=== PATIENT | female | born 1980 | race Hispanic/Latino ===

== ENCOUNTER 2018-02-05 03:47 | Emergency (ER) | payer SELFPAY ==
[2018-02-05] MEDS ORDERED: NA CHLORIDE 0.9% 1,000 ML ONE (04:20)
[2018-02-05 04:44] LABS: Potassium 3.9 mmol/L (3.5-5.1)
[2018-02-05 04:57] LABS: Absolute Lymphocytes (CBC) 2.4 K/uL (0.7-4.9); Absolute Monocytes 0.4 K/uL (0.1-1.3); Basophils % 0.5 % (0-1.3); Eosinophils % 0.6 % (0-4.4); Hematocrit 28.2 % (36.0-45.0); Lymphocytes % 30.5 % (15.3-44.8); MCH 29.2 pg (27.0-35.0); MCV 85.4 fL (80-100); MPV 7.5 fL (7.6-11.3); Monocytes % 5.2 % (3.3-12.3); RBC Red Blood Cell Count 3.31 M/uL (3.86-4.86)
[2018-02-05] MEDS ORDERED: KETOROLAC 30 MG/ML INJ ONE (05:37)
[2018-02-05] MEDS ORDERED: CEFTRIAXONE/SWI 1gm 1 GM/10 ML SYR ONE (05:37)
--- NOTE | 2018-02-05 06:41 | ER ---
Nurse's Notes [facility] Name: Leydi Lind Age: 37 yrs Sex: Female : 1980 Arrival Date: 02/05/2018 Time: 03:49 Bed 18 Private MD: Diagnosis: Abnormal uterine and vaginal bleeding, unspecified;Urinary tract infection, site not specified;Anemia, unspecified Presentation: 02/05 03:49 Presenting complaint: Patient states: "I am having bleeding for 2 weeks now with clots. jd3 I am also having lower abdominal pain.". Transition of care: patient was not received from another setting of care. Onset of symptoms was February 05, 2018. Risk Assessment: Do you want to hurt yourself or someone else? Patient reports no desire to harm self or others. Initial Sepsis Screen: Does the patient meet any 2 criteria? No. Patient's initial sepsis screen is negative. Does the patient have a suspected source of infection? No. Patient's initial sepsis screen is negative. Care prior to arrival: None. 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 - Social history:: Smoking status: . - Ebola Screening: : Patient negative for fever greater than or equal to 101.5 degrees Fahrenheit, and additional compatible Ebola Virus Disease symptoms. - Family history:: not pertinent. Screenin:56 Abuse screen: Denies threats or abuse. Nutritional screening: No deficits noted. jd3 Tuberculosis screening: No symptoms or risk factors identified. Fall Risk Ambulatory Aid- None/Bed Rest/Nurse Assist (0 pts). Gait- Normal/Bed Rest/Wheelchair (0 pts) Mental Status- Oriented to own ability (0 pts). Total Lim Fall Scale indicates No Risk (0-24 pts). Assessment: 03:54 General: Appears in no apparent distress. uncomfortable, Behavior is calm, cooperative, jd3 appropriate for age. Pain: Complains of pain in right lower quadrant and left lower quadrant Quality of pain is described as aching. Neuro: Level of Consciousness is awake, alert, obeys commands, Oriented to person, place, time, situation. Cardiovascular: Denies chest pain, Capillary refill < 3 seconds Patient's skin is warm and dry. Respiratory: Airway is patent Respiratory effort is even, unlabored, Respiratory pattern is regular, symmetrical, Denies shortness of breath. GI: Abdomen is round Bowel sounds present X 4 quads. Abd is soft Abdomen is tender to palpation in right lower quadrant and left lower quadrant. : Urine is blood tinged, Reports vaginal bleeding that is with clots, moderate flow. EENT: No signs and/or symptoms were reported regarding the EENT system. Derm: Skin is intact, Skin is dry, Skin is normal, Skin temperature is warm. Musculoskeletal: Circulation, motion, and sensation intact. Range of motion: intact in all extremities. 04:35 Reassessment: Patient appears in no apparent distress at this time. No changes from jd3 previously documented assessment. Patient and/or family updated on plan of care and expected duration. Pain level reassessed. Patient is alert, oriented x 3, equal unlabored respirations, skin warm/dry/pink. 05:45 Reassessment: Patient appears in no apparent distress at this time. No changes from jd3 previously documented assessment. Patient and/or family updated on plan of care and expected duration. Pain level reassessed. Patient is alert, oriented x 3, equal unlabored respirations, skin warm/dry/pink. 06:48 Reassessment: Patient appears in no apparent distress at this time. No changes from jd3 previously documented assessment. Patient and/or family updated on plan of care and expected duration. Pain level reassessed. Patient is alert, oriented x 3, equal unlabored respirations, skin warm/dry/pink. waiting for CT results to discharge pt. 07:00 General: Appears in no apparent distress. comfortable, Behavior is calm, cooperative. rb1 Pain: Denies pain. Neuro: Level of Consciousness is awake, alert, obeys commands, Oriented to person, place, time, situation. Cardiovascular: Capillary refill < 3 seconds in bilateral fingers. Respiratory: Airway is patent Respiratory effort is even, unlabored, Respiratory pattern is regular, symmetrical. Derm: Skin is dry, Skin is normal, Skin temperature is warm. 07:41 Reassessment: Patient appears in no apparent distress at this time. No changes from rb1 previously documented assessment. Vital Signs: 03:52 BP 131 / 86; Pulse 78; Resp 16 S; Temp 98.9(O); Pulse Ox 100% on R/A; Weight 68.95 kg jd3 (R); Height 5 ft. 4 in. (162.56 cm) (R); 04:35 BP 105 / 71; Pulse 67; Resp 16 S; Pulse Ox 100% on R/A; jd3 05:36 BP 110 / 80 Supine; jd3 05:45 BP 103 / 71 Sitting; Pulse 84; Resp 16 S; Pulse Ox 100% on R/A; jd3 05:59 BP 116 / 86 Standing; jd3 06:50 BP 95 / 61; Pulse 70; Resp 16 S; Pulse Ox 70% on R/A; jd3 07:41 BP 110 / 75; Pulse 68; Resp 17; Pulse Ox 99% on R/A; rb1 03:52 Body Mass Index 26.09 (68.95 kg, 162.56 cm) jd3 ED Course: 03:49 Patient arrived in ED. jd3 03:51 Triage completed. jd3 03:52 Jorge Ortega MD is Attending Physician. shiraz 03:54 Arm band placed on. jd3 03:56 Tarik Hope RN is Primary Nurse. jd3 03:56 Patient has correct armband on for positive identification. Bed in low position. Call j light in reach. Side rails up X 1. Adult w/ patient. 04:05 Inserted saline lock: 20 gauge in right antecubital area, using aseptic technique. jd3 Blood collected. 04:21 CBC with Diff Sent. jd3 04:21 Basic Metabolic Panel Sent. jd3 04:21 Type And Screen Sent. jd3 06:19 CT completed. Patient tolerated procedure well. Patient moved to CT via stretcher. Patient moved back from CT. 06:38 CT Stone Protocol In Process Unspecified. EDMS 06:40 Carrie Barlow MD is Referral Physician. shiraz 07:43 No provider procedures requiring assistance completed. IV discontinued, intact, rb1 bleeding controlled, No redness/swelling at site. Pressure dressing applied. Administered Medications: 04:16 Drug: NS 0.9% 1000 ml Route: IV; Rate: 1 bolus; Site: right antecubital; jd3 07:10 Follow up: IV Status: Completed infusion rb1 05:35 Drug: Rocephin - (cefTRIAXone) 1 grams Route: IVPB; Infused Over: 30 mins; Site: right jd3 antecubital; 06:00 Follow up: Response: No adverse reaction; IV Status: Completed infusion jd3 05:35 Drug: TORadol 30 mg Route: IVP; Site: right antecubital; jd3 05:59 Follow up: Response: No adverse reaction jd3 Outcome: 06:40 Discharge ordered by . shiraz 07:43 Discharged to home ambulatory, with family. rb1 07:43 Condition: stable 07:43 Discharge instructions given to patient, Instructed on discharge instructions, follow up and referral plans. medication usage, Demonstrated understanding of instructions, follow-up care, medications, Prescriptions given X 2. 07:44 Patient left the ED. rb1 Signatures: Dispatcher [employer] EDMS Jorge Ortega MD MD cha Hagler, Ervin eh Barber, Rebecca, RN RN rb1 Tarik Hope RN RN jd3 Corrections: (The following items were deleted from the chart) 04:23 04:21 ABO/RH TYPING+BB.LAB.BRZ drawn and sent. jd3 EDAZ 05:59 05:36 BP 103 / 71 Sitting; Pulse 84bpm; Resp 16bpm; Spontaneous; Pulse Ox 100% RA; jd3 jd3
--- NOTE | 2018-02-05 06:41 | EDPHYS ---
Physician Documentation [facility] Name: Leydi Lind Age: 37 yrs Sex: Female : 1980 Arrival Date: 02/05/2018 Time: 03:49 Bed 18 Private MD: ED Physician Jorge Ortega HPI: 02/05 04:14 This 37 yrs old Female presents to ER via EMS with complaints of heavy vaginal shiraz bleeding. 04:14 The patient presents with vaginal bleeding that is heavy. Onset: The symptoms/episode shiraz began/occurred 3 day(s) ago. Modifying factors: The symptoms are alleviated by nothing, the symptoms are aggravated by nothing. Associated signs and symptoms: The patient has no apparent associated signs or symptoms. Severity of symptoms: At their worst the symptoms were mild, moderate, in the emergency department the symptoms are unchanged. The patient has experienced similar episodes in the past, multiple times. 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 - Social history:: Smoking status: . - Ebola Screening: : Patient negative for fever greater than or equal to 101.5 degrees Fahrenheit, and additional compatible Ebola Virus Disease symptoms. - Family history:: not pertinent. ROS: 04:14 Constitutional: Negative for fever, chills, and weight loss, Eyes: Negative for injury, shiraz pain, redness, and discharge, ENT: Negative for injury, pain, and discharge, Neck: Negative for injury, pain, and swelling, Cardiovascular: Negative for chest pain, palpitations, and edema, Respiratory: Negative for shortness of breath, cough, wheezing, and pleuritic chest pain, Abdomen/GI: Negative for abdominal pain, nausea, vomiting, diarrhea, and constipation, Back: Negative for injury and pain, MS/Extremity: Negative for injury and deformity, Neuro: Negative for headache, weakness, numbness, tingling, and seizure, Psych: Negative for depression, anxiety, suicide ideation, homicidal ideation, and hallucinations, Allergy/Immunology: Negative for hives, rash, and allergies, Endocrine: Negative for neck swelling, polydipsia, polyuria, polyphagia, and marked weight changes, Hematologic/Lymphatic: Negative for swollen nodes, abnormal bleeding, and unusual bruising. 04:14 : Positive for pelvic pain, vaginal bleeding, menstrual abnormality. Exam: 04:14 Constitutional: This is a well developed, well nourished patient who is awake, alert, shiraz and in no acute distress. Head/Face: Normocephalic, atraumatic. ENT: Nares patent. No nasal discharge, no septal abnormalities noted. Tympanic membranes are normal and external auditory canals are clear. Oropharynx with no redness, swelling, or masses, exudates, or evidence of obstruction, uvula midline. Mucous membranes moist. Neck: Trachea midline, no thyromegaly or masses palpated, and no cervical lymphadenopathy. Supple, full range of motion without nuchal rigidity, or vertebral point tenderness. No Meningismus. Chest/axilla: Normal chest wall appearance and motion. Nontender with no deformity. No lesions are appreciated. Cardiovascular: Regular rate and rhythm with a normal S1 and S2. No gallops, murmurs, or rubs. Normal PMI, no JVD. No pulse deficits. Respiratory: Lungs have equal breath sounds bilaterally, clear to auscultation and percussion. No rales, rhonchi or wheezes noted. No increased work of breathing, no retractions or nasal flaring. Abdomen/GI: Soft, non-tender, with normal bowel sounds. No distension or tympany. No guarding or rebound. No evidence of tenderness throughout. Back: No spinal tenderness. No costovertebral tenderness. Full range of motion. MS/ Extremity: Pulses equal, no cyanosis. Neurovascular intact. Full, normal range of motion. Neuro: Awake and alert, GCS 15, oriented to person, place, time, and situation. Cranial nerves II-XII grossly intact. Motor strength 5/5 in all extremities. Sensory grossly intact. Cerebellar exam normal. Normal gait. Psych: Awake, alert, with orientation to person, place and time. Behavior, mood, and affect are within normal limits. 04:14 Eyes: Conjunctiva: pale. 04:14 Abdomen/GI: Inspection: abdomen appears normal, Bowel sounds: normal, Palpation: mild abdominal tenderness, in the suprapubic area, Liver: no appreciated palpable abnormalities, Hernia: not appreciated. 04:14 Skin: Appearance: Color: pale. Vital Signs: 03:52 BP 131 / 86; Pulse 78; Resp 16 S; Temp 98.9(O); Pulse Ox 100% on R/A; Weight 68.95 kg jd3 (R); Height 5 ft. 4 in. (162.56 cm) (R); 04:35 BP 105 / 71; Pulse 67; Resp 16 S; Pulse Ox 100% on R/A; jd3 05:36 BP 110 / 80 Supine; jd3 05:45 BP 103 / 71 Sitting; Pulse 84; Resp 16 S; Pulse Ox 100% on R/A; jd3 05:59 BP 116 / 86 Standing; jd3 06:50 BP 95 / 61; Pulse 70; Resp 16 S; Pulse Ox 70% on R/A; jd3 07:41 BP 110 / 75; Pulse 68; Resp 17; Pulse Ox 99% on R/A; rb1 03:52 Body Mass Index 26.09 (68.95 kg, 162.56 cm) jd3 MDM: 03:52 Patient medically screened. [facility] 04:17 Data reviewed: vital signs, nurses notes, lab test result(s). [facility] 02/05 03:52 Order name: Basic Metabolic Panel; Complete Time: 05:[address] [facility] 02/05 03:52 Order name: CBC with Diff; Complete Time: 05:[address] [facility] 02/05 04:14 Order name: Type And Screen; Complete Time: 06:[address] [facility] 02/05 05:56 Order name: ABO/RH no charge; Complete Time: 06:15 EDOR 02/05 06:47 Order name: Urine Dipstick--Ancillary (enter results) 02/05 03:52 Order name: Urine Test (obtain specimen); Complete Time: 04:[address] [facility] 02/05 03:52 Order name: IV Saline Lock; Complete Time: 04:[address] [facility] 02/05 03:52 Order name: Labs collected and sent; Complete Time: 04:[address] [facility] 02/05 05:15 Order name: CT Stone Protocol [facility] 02/05 06:47 Order name: Urine --Ancillary (enter results) 02/05 03:52 Order name: NPO; Complete Time: 03:[address] [facility] 02/05 03:52 Order name: Urine Dipstick-Ancillary (obtain specimen); Complete Time: 04:[address] [facility] 02/05 03:52 Order name: Orthostatics; Complete Time: 05:[address] [facility] Administered Medications: 04:16 Drug: NS 0.9% 1000 ml Route: IV; Rate: 1 bolus; Site: right antecubital; jd3 07:10 Follow up: IV Status: Completed infusion rb1 05:35 Drug: Rocephin - (cefTRIAXone) 1 grams Route: IVPB; Infused Over: 30 mins; Site: right jd3 antecubital; 06:00 Follow up: Response: No adverse reaction; IV Status: Completed infusion jd3 05:35 Drug: TORadol 30 mg Route: IVP; Site: right antecubital; jd3 05:59 Follow up: Response: No adverse reaction jd3 Disposition: 02/05/18 06:40 Discharged to Home. Impression: Abnormal uterine and vaginal bleeding, unspecified, Urinary tract infection, site not specified, Anemia, unspecified. - Condition is Stable. - Discharge Instructions: Abnormal Uterine Bleeding, Anemia, Nonspecific, Dysmenorrhea, Urinary Tract Infection, Adult, Urinary Tract Infection, Adult, [id number], Abnormal Uterine Bleeding, Kokh-vd-Msvv, Dysmenorrhea, Ptpi-ek-Owik. - Prescriptions for Ibuprofen 600 mg Oral Tablet - take 1 tablet by ORAL route every 8 hours As needed take with food; 21 tablet. Cipro 250 mg Oral Tablet - take 1 tablet by ORAL route every 12 hours; 14 tablet. - Medication Reconciliation Form, Thank You Letter, Antibiotic Education, Prescription Opioid Use form. - Follow up: Private Physician; When: 2 - 3 days; Reason: Recheck today's complaints, Continuance of care, Re-evaluation by your physician. Follow up: Carrie Barlow MD; When: 2 - 3 days; Reason: Recheck today's complaints, Continuance of care, Re-evaluation by your physician. - Problem is new. - Symptoms have improved. Signatures: Dispatcher [employer] Jorge Sandoval MD MD cha Barber, Rebecca, RN RN rb1 Tarik Hope RN RN jd3 Corrections: (The following items were deleted from the chart) 04:23 03:53 ABO/RH TYPING+BB.LAB.BRZ ordered. [facility] 06:41 06:40 02/05/2018 06:40 Discharged to Home. Impression: Abnormal uterine and vaginal shiraz bleeding, unspecified; Urinary tract infection, site not specified; Anemia, unspecified. Condition is Stable. Discharge Instructions: Abnormal Uterine Bleeding, Anemia, Nonspecific, Dysmenorrhea, Urinary Tract Infection, Adult, Urinary Tract Infection, Adult, [id number], Abnormal Uterine Bleeding, Gvpy-nb-Oids, Dysmenorrhea, Wqrs-pc-Ycza. Prescriptions for Ibuprofen 600 mg Oral Tablet - take 1 tablet by ORAL route every 8 hours As needed take with food; 21 tablet, Cipro 250 mg Oral Tablet - take 1 tablet by ORAL route every 12 hours; 14 tablet. and Forms are Medication Reconciliation Form, Thank You Letter, Antibiotic Education, Prescription Opioid Use. Follow up: Private Physician; When: 2 - 3 days; Reason: Recheck today's complaints, Continuance of care, Re-evaluation by your physician. Problem is new. Symptoms have improved. shiraz 07:44 06:41 02/05/2018 06:40 Discharged to Home. Impression: Abnormal uterine and vaginal rb1 bleeding, unspecified; Urinary tract infection, site not specified; Anemia, unspecified. Condition is Stable. Discharge Instructions: Abnormal Uterine Bleeding, Anemia, Nonspecific, Dysmenorrhea, Urinary Tract Infection, Adult, Urinary Tract Infection, Adult, [id number], Abnormal Uterine Bleeding, Vfmm-jn-Kaag, Dysmenorrhea, Lvqg-ek-Vkda. Prescriptions for Ibuprofen 600 mg Oral Tablet - take 1 tablet by ORAL route every 8 hours As needed take with food; 21 tablet, Cipro 250 mg Oral Tablet - take 1 tablet by ORAL route every 12 hours; 14 tablet. and Forms are Medication Reconciliation Form, Thank You Letter, Antibiotic Education, Prescription Opioid Use. Follow up: Private Physician; When: 2 - 3 days; Reason: Recheck today's complaints, Continuance of care, Re-evaluation by your physician. Follow up: Carrie Barlow; When: 2 - 3 days; Reason: Recheck today's complaints, Continuance of care, Re-evaluation by your physician. Problem is new. Symptoms have improved. shiraz
[2018-02-05 07:33] LABS: Urine Blood 3+ (NEG); Urine Glucose NEGATIVE (NEG); Urine Protein 2+ (NEG); Urine pH 5.5 (5.0-7.0)
[2018-02-05 07:48] VITALS: TEMP 98.9
[2018-02-05 07:55] VITALS: BP 110/75; O2SAT 99
--- NOTE | 2018-02-05 08:05 | RAD REPORT ---
EXAM DESCRIPTION: CT - Stone Protocol - 02/05/2018 7:46 am CLINICAL HISTORY: Abdominal pain. Lower abdominal pain. Vaginal bleeding COMPARISON: None. TECHNIQUE: Computed axial tomography of the abdomen pelvis was obtained without oral or IV contrast. Lack of IV and oral contrast limits evaluation of solid organs, bowel, and vessels. Coronal reformat maria del carmen images were obtained and reviewed. Preliminary report was generated by [facility] and re viewed prior to dictation All CT scans are performed using dose optimization technique as appropriate and may include automated exposure control or mA/KV adjustment according to patient size. FINDINGS: A renal calculus is not seen. An ureteral calculus is not noted. A bladder calculus is not present. The liver, spleen, pancreas and adrenals appear grossly normal There is no evidence of diverticulitis. The appendix appears normal Endometrial stripe appears thickened containing increased density. 2.1 centimeter left ovarian cyst i s present. Small amount of free fluid is present. IMPRESSION: Thickened endometrium. Pelvic ultrasound is recommended for further evaluation 2.1 centimeter left ovarian cyst. Small amount free fluid
== END 2018-02-05 07:44 | disposition home or self-care (01) ==
LOC: ER 03:47
DX: N39.0 Urinary tract infection, site not specified (principal); D64.9 Anemia, unspecified
CPT/HCPCS: 36415; 74176; 76377; 80048; 81003; 81025; 85025; 86850; 86900; 86901; 96361; 96365; 96375; 99284; J0696; J7030

== ENCOUNTER 2018-02-05 22:51 | Observation (INO) | payer SELFPAY ==
[2018-02-05] MEDS ORDERED: NA CHLORIDE 0.9% 1,000 ML ONE (23:37)
[2018-02-05 23:58] LABS: Absolute Lymphocytes (CBC) 2.4 K/uL (0.7-4.9); Absolute Monocytes 0.4 K/uL (0.1-1.3); Absolute Neutrophil 9.1 K/uL (1.8-8.0); Basophils % 0.2 % (0-1.3); Eosinophils % 0.4 % (0-4.4); Hematocrit 23.8 % (36.0-45.0); MCH 30.5 pg (27.0-35.0); MCV 85.6 fL (80-100); MPV 7.6 fL (7.6-11.3); Monocytes % 3.7 % (3.3-12.3); RBC Red Blood Cell Count 2.78 M/uL (3.86-4.86)
[2018-02-06 00:11] LABS: Potassium 3.7 mmol/L (3.5-5.1)
[2018-02-06 01:00] LABS: Urine Blood 3+ (NEG); Urine Glucose NEGATIVE (NEG); Urine Protein 2+ (NEG)
--- NOTE | 2018-02-06 02:43 | EDPHYS ---
Physician Documentation [facility] Name: Leydi Lind Age: 37 yrs Sex: Female : 1980 Arrival Date: 02/05/2018 Time: 22:59 Bed 15 Private MD: ED Physician Jorge Ortega HPI: 02/06 00:28 This 37 yrs old Female presents to ER via EMS with complaints of vaginal shiraz bleed, pelvic pain. 00:28 The patient presents with vaginal bleeding that is. Onset: The symptoms/episode shiraz began/occurred 14 day(s) ago. Modifying factors: The symptoms are alleviated by nothing, the symptoms are aggravated by nothing. Associated signs and symptoms: The patient has no apparent associated signs or symptoms. Severity of symptoms: At their worst the symptoms were mild, moderate, in the emergency department the symptoms are unchanged. The patient has experienced similar episodes in the past, several times. 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 - Social history:: Smoking status: Patient/guardian denies using tobacco, Patient/guardian denies using alcohol, street drugs. - Ebola Screening: : No symptoms or risks identified at this time. - Family history:: not pertinent. ROS: 02/06 00:28 Constitutional: Negative for fever, chills, and weight loss, ENT: Negative for injury, shiraz pain, and discharge, Neck: Negative for injury, pain, and swelling, Cardiovascular: Negative for chest pain, palpitations, and edema, Respiratory: Negative for shortness of breath, cough, wheezing, and pleuritic chest pain, Back: Negative for injury and pain, MS/Extremity: Negative for injury and deformity, Neuro: Negative for headache, weakness, numbness, tingling, and seizure, Psych: Negative for depression, anxiety, suicide ideation, homicidal ideation, and hallucinations, Allergy/Immunology: Negative for hives, rash, and allergies, Endocrine: Negative for neck swelling, polydipsia, polyuria, polyphagia, and marked weight changes, Hematologic/Lymphatic: Negative for swollen nodes, abnormal bleeding, and unusual bruising. Eyes: ENT: Positive for : Positive for vaginal bleeding. Skin: Positive for pallor. Exam: 00:28 Constitutional: This is a well developed, well nourished patient who is awake, alert, shiraz and in no acute distress. Head/Face: Normocephalic, atraumatic. ENT: Nares patent. No nasal discharge, no septal abnormalities noted. Tympanic membranes are normal and external auditory canals are clear. Oropharynx with no redness, swelling, or masses, exudates, or evidence of obstruction, uvula midline. Mucous membranes moist. Neck: Trachea midline, no thyromegaly or masses palpated, and no cervical lymphadenopathy. Supple, full range of motion without nuchal rigidity, or vertebral point tenderness. No Meningismus. Chest/axilla: Normal chest wall appearance and motion. Nontender with no deformity. No lesions are appreciated. Cardiovascular: Regular rate and rhythm with a normal S1 and S2. No gallops, murmurs, or rubs. Normal PMI, no JVD. No pulse deficits. Respiratory: Lungs have equal breath sounds bilaterally, clear to auscultation and percussion. No rales, rhonchi or wheezes noted. No increased work of breathing, no retractions or nasal flaring. Back: No spinal tenderness. No costovertebral tenderness. Full range of motion. MS/ Extremity: Pulses equal, no cyanosis. Neurovascular intact. Full, normal range of motion. Neuro: Awake and alert, GCS 15, oriented to person, place, time, and situation. Cranial nerves II-XII grossly intact. Motor strength 5/5 in all extremities. Sensory grossly intact. Cerebellar exam normal. Normal gait. Psych: Awake, alert, with orientation to person, place and time. Behavior, mood, and affect are within normal limits. 00:28 Eyes: Conjunctiva: pale. 00:28 Abdomen/GI: Inspection: abdomen appears normal, Bowel sounds: normal, Palpation: mild abdominal tenderness, moderate abdominal tenderness, in the suprapubic area, Liver: no appreciated palpable abnormalities, Hernia: not appreciated. 02:30 : Pelvic Exam: External exam: is normal, Speculum exam: mild bleeding, os that is shiraz closed, bimanual exam reveals no cervical motion tenderness, os that is closed, an enlarged uterus, uterine tenderness, the nurse was present for the exam. Vital Signs: 02/05 23:09 BP 123 / 85; Pulse 90; Resp 18; Temp 99.1; Pulse Ox 96% on R/A; Weight 68.95 kg; Height jb4 5 ft. 1 in. (154.94 cm); Pain 08/05; 02/06 00:05 BP 108 / 66 Supine; Pulse 85; Resp 18; Pulse Ox 100% on R/A; jb4 00:07 BP 110 / 70 Sitting; Pulse 96; Resp 18; Pulse Ox 100% on R/A; jb4 00:09 BP 117 / 66; Pulse 96; Resp 18; Pulse Ox 100% on R/A; jb4 01:45 BP 101 / 63; Pulse 108; Resp 18; Pulse Ox 99% on R/A; jb4 02:42 BP 110 / 69; Pulse 82; Resp 18; Pulse Ox 100% on R/A; jb4 03:45 BP 104 / 75; Pulse 80; Resp 18; Pulse Ox 100% on R/A; jb4 02/05 23:09 Body Mass Index 28.72 (68.95 kg, 154.94 cm) 4 MDM: 02/05 23:09 Patient medically screened. [facility] 02/06 00:33 Data reviewed: vital signs, nurses notes, lab test result(s), radiologic studies, CT [facility] scan. 02/05 23:10 Order name: Abo/rh Typing [facility] 02/05 23:10 Order name: Basic Metabolic Panel [facility] 02/05 23:10 Order name: CBC with Diff [facility] 02/05 23:11 Order name: Basic Metabolic Panel; Complete Time: 00:21 [facility] 02/05 23:11 Order name: CBC with Automated Diff; Complete Time: 00:21 [facility] 02/06 00:23 Order name: Urine Dipstick--Ancillary (enter results); Complete Time: 02:27 02/06 01:04 Order name: Type and Screen [facility] 02/06 02:47 Order name: Basic Metabolic Panel [facility] 02/06 02:47 Order name: Basic Metabolic Panel [facility] 02/06 02:47 Order name: Basic Metabolic Panel [facility] 02/06 02:47 Order name: CBC with Automated Diff [facility] 02/06 02:47 Order name: CBC with Automated Diff [facility] 02/05 23:10 Order name: Urine Test (obtain specimen); Complete Time: 00:04 [facility] 02/06 02:47 Order name: NPO [facility] 02/06 02:47 Order name: CBC with Automated Diff [facility] 02/06 02:47 Order name: Lipase EDMS 02/06 02:47 Order name: Lipase [facility]MI 02/06 02:47 Order name: Lipase [facility]MI 02/06 02:47 Order name: Liver (Hepatic) Function [facility] 02/06 02:47 Order name: Liver (Hepatic) Function [facility]MI 02/06 02:47 Order name: Liver (Hepatic) Function [facility] 02/06 02:47 Order name: Pelvis Complete [facility] 02/05 23:10 Order name: IV Saline Lock; Complete Time: 23:56 [facility] 02/05 23:10 Order name: Labs collected and sent; Complete Time: 23:56 [facility] 02/05 23:10 Order name: NPO; Complete Time: 23:15 [facility] 02/05 23:10 Order name: Urine Dipstick-Ancillary (obtain specimen); Complete Time: 00:05 [facility] 02/05 23:10 Order name: Orthostatics; Complete Time: 00:09 [facility] 02/06 00:28 Order name: Pelvic Exam Setup; Complete Time: 01:10 [facility] Administered Medications: 00:04 Drug: NS 0.9% 1000 ml Route: IV; Rate: 1 bolus; Site: right antecubital; jb4 01:30 Follow up: Response: No adverse reaction; IV Status: Completed infusion jb4 02:56 Drug: Rocephin - (cefTRIAXone) 1 grams {Note: administered IVP per pharmacy protocol .} jb4 Route: IVPB; Infused Over: 30 mins; Site: right antecubital; 02:57 Follow up: Response: No adverse reaction; IV Status: Completed infusion jb4 03:24 Not Given (Patient Refused): DepoProvera - medroxyPROGESTERone 150 mg IM once jb4 03:35 Drug: Zofran 4 mg Route: IVP; Site: right antecubital; jb4 03:39 Follow up: Response: No adverse reaction; Nausea is decreased jb4 03:37 Drug: fentaNYL (PF) 25 mcg Route: IVP; Site: right antecubital; jb4 03:39 Follow up: Response: No adverse reaction; Pain is decreased jb4 03:38 Drug: fentaNYL (PF) 25 mcg Route: IVP; Site: right antecubital; jb4 03:40 Follow up: Response: No adverse reaction; Pain is decreased jb4 Disposition: 02/06/18 02:42 Hospitalization ordered by Hubert Art for Observation. Preliminary diagnosis are Pelvic and perineal pain, Abnormal uterine and vaginal bleeding, unspecified, Urinary tract infection, site not specified, Anemia, unspecified. - Bed [facility] for [facility]. - Status is Observation. jb4 - Condition is Stable. - Problem is new. - Symptoms have improved. UTI on Admission? Yes Signatures: Dispatcher [employer] EDMI Randi Bailey RN RN mw Anderson, Corey, MD MD cha Bryson, James, RN RN jb4 Corrections: (The following items were deleted from the chart) 01:03 00:28 TYPE AND SCREEN+BB.LAB.BRZ ordered. [facility] 01:04 02/05 23:11 ABO/RH typing ordered. [facility] 02/06 02:47 02:42 Hospitalization Ordered by Hubert Art MD for Observation. Preliminary [facility] diagnosis is Pelvic and perineal pain; Abnormal uterine and vaginal bleeding, unspecified; Urinary tract infection, site not specified; Anemia, unspecified. Bed requested for Telemetry/MedSurg (observation). Status is Observation. Condition is Stable. Problem is new. Symptoms have improved. UTI on Admission? Yes. [facility] 03:27 02:47 02/06/2018 02:42 Hospitalization Ordered by Hubert Art MD for Observation. yanci Preliminary diagnosis is Pelvic and perineal pain; Abnormal uterine and vaginal bleeding, unspecified; Urinary tract infection, site not specified; Anemia, unspecified. Bed requested for [facility]. Status is Observation. Condition is Stable. Problem is new. Symptoms have improved. UTI on Admission? Yes. shiraz 03:57 03:27 02/06/2018 02:42 Hospitalization Ordered by Hubert Art MD for Observation. tawny Preliminary diagnosis is Pelvic and perineal pain; Abnormal uterine and vaginal bleeding, unspecified; Urinary tract infection, site not specified; Anemia, unspecified. Bed requested for [facility]. Status is Observation. Condition is Stable. Problem is new. Symptoms have improved. UTI on Admission? Yes. yanci
--- NOTE | 2018-02-06 02:43 | ER ---
Nurse's Notes [facility] Name: Leydi Lind Age: 37 yrs Sex: Female : 1980 Arrival Date: 02/05/2018 Time: 22:59 Bed 15 Private MD: Diagnosis: Pelvic and perineal pain;Abnormal uterine and vaginal bleeding, unspecified;Urinary tract infection, site not specified;Anemia, unspecified Presentation: 02/05 22:59 Presenting complaint: EMS states: Pt reports heavy vaginal bleeding for the past 2 jb4 weeks after stopping her Depo shot. Transition of care: patient was not received from another setting of care. Onset of symptoms was January 22, 2018. Risk Assessment: Do you want to hurt yourself or someone else? Patient reports no desire to harm self or others. Initial Sepsis Screen: Does the patient meet any 2 criteria? No. Patient's initial sepsis screen is negative. Does the patient have a suspected source of infection? No. Patient's initial sepsis screen is negative. Care prior to arrival: None. 22:59 Method Of Arrival: EMS: [facility] jb4 22:59 Acuity: SOPHIA 4 jb4 Triage Assessment: 23:09 General: Appears in no apparent distress. uncomfortable, Behavior is calm, cooperative, jb4 appropriate for age. Pain: Complains of pain in abdomen Pain does not radiate. Pain currently is 4 out of 10 on a pain scale. at worst was 9 out of 10 on a pain scale. Quality of pain is described as crampy, Pain began 2 weeks ago Is intermittent. EENT: No signs and/or symptoms were reported regarding the EENT system. Neuro: Level of Consciousness is awake, alert, obeys commands, Oriented to person, place, time, situation. Cardiovascular: Heart tones S1 S2 present Patient's skin is warm and dry. Respiratory: Airway is patent Respiratory effort is even, unlabored, Respiratory pattern is regular, symmetrical, Breath sounds are clear bilaterally. GI: Abdomen is round non-distended, Bowel sounds present X 4 quads. Abd is soft and non tender in right upper quadrant and left upper quadrant Abd is soft in right lower quadrant and left lower quadrant Abdomen is tender to palpation in right lower quadrant and left lower quadrant. : Reports vaginal bleeding that is with clots, heavy flow. Derm: Skin is intact, Skin is pink, warm \T\ dry. Musculoskeletal: Circulation, motion, and sensation intact. 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 - Social history:: Smoking status: Patient/guardian denies using tobacco, Patient/guardian denies using alcohol, street drugs. - Ebola Screening: : No symptoms or risks identified at this time. - Family history:: not pertinent. Screenin:14 Abuse screen: Denies threats or abuse. Nutritional screening: No deficits noted. jb4 Tuberculosis screening: No symptoms or risk factors identified. Fall Risk None identified. Assessment: 23:14 General: see triage assesment. jb4 02/06 00:09 Reassessment: Patient appears in no apparent distress at this time. Patient and/or jb4 family updated on plan of care and expected duration. Pain level reassessed. Patient is alert, oriented x 3, equal unlabored respirations, skin warm/dry/pink. 01:15 Reassessment: pelvic exam set up for provider. ak1 02:39 Reassessment: Patient appears in no apparent distress at this time. Patient and/or jb4 family updated on plan of care and expected duration. Pain level reassessed. Patient is alert, oriented x 3, equal unlabored respirations, skin warm/dry/pink. 03:55 Reassessment: Patient appears in no apparent distress at this time. Patient and/or jb4 family updated on plan of care and expected duration. Pain level reassessed. Patient is alert, oriented x 3, equal unlabored respirations, skin warm/dry/pink. Vital Signs: 02/05 23:09 BP 123 / 85; Pulse 90; Resp 18; Temp 99.1; Pulse Ox 96% on R/A; Weight 68.95 kg; Height jb4 5 ft. 1 in. (154.94 cm); Pain 4/10; 02/06 00:05 BP 108 / 66 Supine; Pulse 85; Resp 18; Pulse Ox 100% on R/A; jb4 00:07 BP 110 / 70 Sitting; Pulse 96; Resp 18; Pulse Ox 100% on R/A; jb4 00:09 BP 117 / 66; Pulse 96; Resp 18; Pulse Ox 100% on R/A; jb4 01:45 BP 101 / 63; Pulse 108; Resp 18; Pulse Ox 99% on R/A; jb4 02:42 BP 110 / 69; Pulse 82; Resp 18; Pulse Ox 100% on R/A; jb4 03:45 BP 104 / 75; Pulse 80; Resp 18; Pulse Ox 100% on R/A; jb4 02/05 23:09 Body Mass Index 28.72 (68.95 kg, 154.94 cm) jb4 ED Course: 02/05 22:59 Patient arrived in ED. jb4 23:01 Triage completed. jb4 23:09 Jorge Ortega MD is Attending Physician. shiraz 23:09 Arm band placed on right wrist. jb4 23:14 Patient has correct armband on for positive identification. Bed in low position. Call jb4 light in reach. Side rails up X 1. Pulse ox on. NIBP on. 23:15 Bruce Rodriguez, CHELSY is Primary Nurse. jb4 23:30 Inserted saline lock: 20 gauge in right antecubital area, using aseptic technique. ds4 Blood collected. 10 00:33 Basic Metabolic Panel Sent. ds4 00:33 CBC with Diff Sent. ds4 02:41 Hubert Art MD is Hospitalizing Provider. [facility] 02:42 Assist provider with pelvic exam: Set up pelvic tray. Performed by Jorge Ortega MD ak1 Patient tolerated well. 03:45 Patient admitted, IV remains in place. jb4 Administered Medications: 00:04 Drug: NS 0.9% 1000 ml Route: IV; Rate: 1 bolus; Site: right antecubital; jb4 01:30 Follow up: Response: No adverse reaction; IV Status: Completed infusion jb4 02:56 Drug: Rocephin - (cefTRIAXone) 1 grams {Note: administered IVP per pharmacy protocol .} jb4 Route: IVPB; Infused Over: 30 mins; Site: right antecubital; 02:57 Follow up: Response: No adverse reaction; IV Status: Completed infusion jb4 03:24 Not Given (Patient Refused): DepoProvera - medroxyPROGESTERone 150 mg IM once jb4 03:35 Drug: Zofran 4 mg Route: IVP; Site: right antecubital; jb4 03:39 Follow up: Response: No adverse reaction; Nausea is decreased jb4 03:37 Drug: fentaNYL (PF) 25 mcg Route: IVP; Site: right antecubital; jb4 03:39 Follow up: Response: No adverse reaction; Pain is decreased jb4 03:38 Drug: fentaNYL (PF) 25 mcg Route: IVP; Site: right antecubital; jb4 03:40 Follow up: Response: No adverse reaction; Pain is decreased jb4 Outcome: 02:42 Decision to Hospitalize by Provider. shiraz 03:45 Admitted to L \T\ D, accompanied by joshua, via wheelchair, room 270, with chart, Report jb4 called to CHELSY Leyva 03:45 Condition: stable 03:45 Instructed on the need for admit, Demonstrated understanding of instructions. 03:57 Patient left the ED. jb4 Signatures: Jorge Ortega MD MD cha Swanson, Donovan ds4 Barby Bliss, RN RN ak1 Bruce Rodriguez, CHELSY RN jb4 Corrections: (The following items were deleted from the chart) 01:03 00:33 TYPE AND SCREEN+BB.LAB.BRZ drawn and sent. ds4 EDMS
[2018-02-06] MEDS ORDERED: ONDANSETRON 4 MG/2 ML VIAL IV PRN (02:44)
[2018-02-06] MEDS ORDERED: MORPHINE 4 MG/ML SYR IV PRN (02:44)
[2018-02-06] MEDS ORDERED: ACETAMINOPHEN 500 MG TAB PO PRN (02:44)
[2018-02-06] MEDS ORDERED: CEFTRIAXONE/SWI 1gm 1 GM/10 ML SYR ONE (02:55)
[2018-02-06] MEDS ORDERED: NA CHLORIDE 0.9% 1,000 ML IV SCH (03:00)
[2018-02-06] MEDS ORDERED: MEDROXYPROGEST ACET 150 MG/ML IM ONE (03:04)
[2018-02-06] MEDS ORDERED: FENTANYL CITR 100 MCG/2 ML ONE ×2 (03:33→11:03)
[2018-02-06 04:08] VITALS: O2SAT 100
[2018-02-06 04:51] VITALS: BMI 28.7
[2018-02-06 06:02] LABS: ALT/SGPT 25 U/L (12-78); AST/SGOT 17 U/L (15-37); Albumin 3.1 g/dL (3.4-5.0); Alkaline Phosphatase 79 U/L (45-117); BUN Blood Urea Nitrogen 11 mg/dL (7-18); Bicarbonate 23 mmol/L (21-32); Bilirubin Direct 0.1 mg/dL (0-0.2); Bilirubin Total 0.3 mg/dL (0.2-1.0); Glucose Level 146 mg/dL (74-106); Lipase 134 U/L (73-393); Potassium 4.2 mmol/L (3.5-5.1); Sodium Level 141 mmol/L (136-145)
[2018-02-06 06:03] LABS: Absolute Lymphocytes (CBC) 1.7 K/uL (0.7-4.9); Absolute Monocytes 0.3 K/uL (0.1-1.3); Absolute Neutrophil 6.7 K/uL (1.8-8.0); Basophils % 0.5 % (0-1.3); Eosinophils % 0.5 % (0-4.4); MCH 29.9 pg (27.0-35.0); MCV 85.9 fL (80-100); MPV 7.5 fL (7.6-11.3); RBC Red Blood Cell Count 2.35 M/uL (3.86-4.86)
[2018-02-06 06:18] LABS: Hematocrit 20.2 % (36.0-45.0)
[2018-02-06] MEDS ORDERED: INFLUENZA VACCINE (for 3y+) 0.5 ML DOSE IMVAC ONE (08:00)
--- NOTE | 2018-02-06 09:54 | RAD REPORT ---
EXAM DESCRIPTION: US - Pelvis Complete - 02/06/2018 9:09 am CLINICAL HISTORY: Dysfunctional uterine bleeding COMPARISON: None. TECHNIQUE: Transabdominal pelvic sonography was performed. FINDINGS: Heterogeneous material in the endometrial cavity is present up to 2.4 cm in thickness. Thi s is probably all hemorrhagic material. This heterogeneous material fills the cervical canal and is s een in the vaginal canal as well. The hemorrhagic material could mask any discrete endometrial mass o r polyp. No myometrial mass seen. Overall uterine size is normal measuring 11.3 x 4.9 x 5.1 cm. Both ovaries are identifiable and normal in size. No suspicious solid or cystic ovarian or adnexal fi nding. No abnormal blood or fluid in the cul de sac. IMPRESSION: Heterogeneous material fills the endometrial cavity, cervical canal and extends into the vaginal vault. This is all believed to be hematoma and other hemorrhagic material. Endometrial mass or polyp could b e masked by the heterogeneous endometrial blood products. No ovarian or adnexal abnormality.
[2018-02-06] MEDS ORDERED: SILVER NITRATE 1 APPL TOP ONE (10:30)
[2018-02-06] MEDS ORDERED: LIDOCAINE 2% MPF 5 ML VIAL ONE (11:03)
[2018-02-06] MEDS ORDERED: PROPOFOL 200 MG/20 ML VIAL IV ONE (11:03)
[2018-02-06] MEDS ORDERED: MIDAZOLAM HCL 2 MG/2 ML INJ ONE (11:03)
[2018-02-06] MEDS ORDERED: KETOROLAC 30 MG/ML INJ IV PRN (12:06)
--- NOTE | 2018-02-06 12:06 | P.BOP ---
Preoperative diagnosis: menorhagia Postoperative diagnosis: Same, endometrial polyp vs. POC Primary procedure: Curretage of endometrium Estimated blood loss: Less than 5ml Specimen: Endometrial polyp Anesthesia: General Complications: None Transferred to: Recovery Room Condition: Good
[2018-02-06] MEDS ORDERED: METHYLERGONOVINE 0.2MG/ML AMP IM ONE (12:07)
--- NOTE | 2018-02-06 12:09 | PREOPHP ---
Date of Admission: 02/06/2018 History Of Present Illness: Ms. Lind is a 37-year-old female, 3, para 3-0-0-3, who had been on Depo-Provera for contraception through [facility]. She presents with a 2-week history of vaginal bleeding. She has been seen in the emergency room couple of days before dismissed with treatment for a possible UTI, returns with bleeding, passing clots, and reduced blood count. She was noted in the emergency room, on repeat specimen have 8.5 and 23.8, now this morning is found 7 and 28.2. She is admitted for evaluation, treatment of bleeding, and now transfusion. Past Medical History: Includes 3 prior vaginal deliveries. Past Surgical History: No other surgeries. Medications: She is on no medications other than Depo-Provera, is not due for a next injection of Depo until the end of this month. She states she has been on this for 2 years and is not having bleeding before this time. Allergies: SHE HAS NO KNOWN ALLERGIES. Family History: Noncontributory. Review of Systems: She reports no recent cough, cold, fever, or chills. No breast knots or lumps. No bowel or bladder issues. Physical Examination: General: Reveals female, somewhat pale. Neck: Supple without adenopathy or thyromegaly. Lungs: Clear. Cardiac: Regular rate and rhythm without murmurs. Breasts: Not examined. Abdomen: Mildly obese. No hepatosplenomegaly or suprapubic masses. Pelvic: Not performed. Extremities: No cyanosis, clubbing, or edema. Laboratory Data: Recent CT exam shown no evidence of leiomyomata, but a thickened endometrium. Most recent hemoglobin and hematocrit are 7 and 28.2. She has a negative urine test. Impression: Menorrhagia. Plan: I have not seen heavy bleeding like this after patient has been on Depo for couple of years. CT report reporting the thickened endometrium is also very unusual since the progesterone tends to thin out the lining. We will transfuse 2 units of packed red blood cells since is continuing to bleed. After first unit, we will probably perform D and C for endometrial biopsy, but also possible polyp removal. This might represent what is seen on the CT exam and would explain bleeding despite the Depo and the appearance of a thickened endometrium despite the Depo. MPG/MODL Voice ID: [id number] MTDD
[2018-02-06] MEDS ORDERED: Ringers Lactate 1,000 ML IV ONE (12:15)
[2018-02-06 15:17] LABS: Hematocrit 29.2 % (36.0-45.0)
[2018-02-06 17:08] VITALS: BP 111/72; TEMP 97.7
--- NOTE | 2018-02-06 23:15 | OP ---
Surgeon: Hubert Art MD Preoperative Diagnosis: Menorrhagia. Procedure: Curettage of endometrium. Postoperative Diagnosis: Possible products of conception versus necrotic endometrial polyp. Description Of Procedure: After the patient was prepped and draped in the usual fashion in high leg holders, a weighted speculum was placed in posterior vagina. Cervix was visualized and grasped with single-tooth tenaculum. It was sufficiently dilated to accept a polyp forceps, with removal of moderate amount of tissue resembling products of conception. Brief curettage of the endometrium produced no further tissue. The patient was then awakened, extubated, and taken to recovery room in satisfactory condition. Anesthesia: Beronica Munoz and Dr. Shaggy Abbott. COOPERG/DEB Voice ID: [id number] Report ID: [id number] MTDShay
--- NOTE | 2018-02-07 08:10 | DS ---
Date of Discharge: 02/06/2018 Final Hospital Discharge Diagnoses: Failed , severe anemia. Complications: None. Procedures: Transfusion of packed red blood cells, curettage of uterine and endometrium. Hospital Course: The patient is a 37-year-old female, 3, para 3-0-0-3, who presente d to the emergency room with vaginal bleeding and anemia. She has a history of 2 weeks of vaginal bl eeding and presented. She had a negative urine test. CT seem to indicated thickened endom etrium. Ultrasound showed similar abnormality, possible polyp. She underwent curettage of the endom etrium productive of probable products of conception. Serum hCG was only 2. Lab included hemoglobin and hematocrit of 8.5 and 23.8 had dropped to 7 and 20.2. She was transfused, underwent D and C, wa s dismissed at 10.1 and 29.2. She is O-positive blood type. Antibody and immune. Was dismissed wit h 1 pack of Sprintec oral contraceptives to be started this Friday. To be seen back in my office in 2 weeks with usual post D and C activity restrictions. MARY JO/DEB Voice ID: [id number] Report ID: [id number]
== END 2018-02-06 16:50 | disposition home or self-care (01) ==
LOC: ER 22:51 → ERHOLD 02-06 02:43 → 2ND-WC 02-06 03:50
PROVIDERS: ADMIT Specialist; ATTEND Specialist
PROC: 30233N1 Transfusion of Nonautologous Red Blood Cells into Peripheral Vein, Percutaneous Approach (ICD-10-PCS; 2018-02-06)
PROC: 0UDB7ZZ Extraction of Endometrium, Via Natural or Artificial Opening (ICD-10-PCS; principal; 2018-02-06 11:00)
DX: O02.1 Missed abortion (principal); D64.9 Anemia, unspecified; N92.0 Excessive and frequent menstruation with regular cycle; Z23 Encounter for immunization
CPT/HCPCS: 36415; 76856; 80048; 80076; 81003; 83690; 84702; 85014; 85018; 85025; 86850; 86900; 86901; 88305; 96361; 96374; 96375; 99285; G0378; J0696; J1050; J2210; J2250; J2405; J3010; J7030; P9016; Q2035